=== PATIENT | male | born 1965 | race Caucasian/White ===

== ENCOUNTER 2023-07-02 09:22 | Emergency (ER) | payer OTHER ==
[~2023-07-02] VITALS: Ht 177.8 cm; Wt 118.8 kg
[2023-07-02] MEDS ORDERED: TOPROL XL100 M1 PO (09:46)
[2023-07-02] MEDS ORDERED: CRESTOR10 MG PO (09:46)
[2023-07-02] MEDS ORDERED: FARXIGA10 MG PO (09:47)
[2023-07-02] MEDS ORDERED: FENOFIBRIC ACI105 MG (09:47)
[2023-07-02] MEDS ORDERED: ALTACE10 MG PO (09:47)
[2023-07-02] MEDS ORDERED: METFORMIN HCL500 M2 PO (09:47)
== END 2023-07-02 12:48 | disposition home or self-care (01) ==
LOC: ER 09:22
DX: R42 Dizziness and giddiness (principal)

== ENCOUNTER → 2024-05-04 08:06 | Outpatient (CLI) | payer OTHER ==
[~2024-05-04 08:06] MED LIST: ALTACE10 MG PO; CRESTOR10 MG PO; FARXIGA10 MG PO; FENOFIBRIC ACI105 MG; METFORMIN HCL500 M2 PO; TOPROL XL100 M1 PO
== END | disposition home or self-care (01) ==
LOC: LAB 08:06
DX: E11.65 Type 2 diabetes mellitus with hyperglycemia (principal); E11.8 Type 2 diabetes mellitus with unspecified complications

== ENCOUNTER → 2024-08-26 07:29 | Outpatient (CLI) | payer OTHER ==
[2024-08-26 08:54] LABS: ALBUMIN 4.1 gm/dL (3.4-5.0); BILIRUBIN TOTAL 0.7 mg/dL (0.3-1.2); CALCIUM 8.8 mg/dL (8.5-10.1); CREATININE SERUM 0.81 mg/dL (0.70-1.30); GFR 96.88; GLOBULINA 3.2 G/DL (2.4-3.5); POTASSIUM 4.08 mEq/L (3.5-5.1); TOTAL PROTEIN 7.3 gm/dL (6.4-8.2)
== END | disposition home or self-care (01) ==
LOC: LAB 07:29
PROVIDERS: ATTEND Internal Medicine
DX: E11.9 Type 2 diabetes mellitus without complications (principal)

== ENCOUNTER → 2024-12-06 09:07 | Outpatient (CLI) | payer OTHER ==
[2024-12-06 11:41] LABS: HEMATOCRIT 42.9 % (39.0-48.0); HEMOGLOBIN 14.6 g/dL (13-16.00); MEAN CELL VOLUME 87.8 fL (80.0-100.00); MEAN CORPUSCULAR HEMOGLOBIN 29.8 pg (27.00-32.0); PLATELET COUNT 206 K/uL (150-450); RED BLOOD COUNT 4.89 M/uL (4.00-6.00)
[2024-12-06 11:55] LABS: ALBUMIN 4.3 gm/dL (3.4-5.0); BILIRUBIN TOTAL 0.7 mg/dL (0.3-1.2); CREATININE SERUM 0.76 mg/dL (0.70-1.30); GFR 104.27; POTASSIUM 4.27 mEq/L (3.5-5.1); TOTAL PROTEIN 7.3 gm/dL (6.4-8.2)
== END | disposition home or self-care (01) ==
LOC: LAB 09:07
PROVIDERS: ATTEND Internal Medicine
DX: I11.9 Hypertensive heart disease without heart failure (principal)

== ENCOUNTER 2025-03-12 07:14 | Outpatient (CLI) | payer OTHER ==
[2025-03-12 08:21] LABS: BASO % 0.6 % (0.1-1.2); EOS # 0.21 (0.04-0.54); EOS % 3.3 % (0.7-7.0); LYMPH # 2.37 (1.18-3.74); LYMPH % 36.9 % (19.3-53.1); MEAN PLATELET VOLUME 9.90 fl (9.4-12.4); MONO # 0.59 (0.24-0.82); MONO % 9.2 % (4.7-12.5); NEUT # 3.19 (1.56-6.13); NEUT % 49.7 % (34.0-71.1); RED CELL DISTRIBUTION WIDTH 12.4 % (11.6-14.4)
[2025-03-12 09:17] LABS: ALT/SGPT 32.0 U/L (12-78); AST/SGOT 23.0 U/L (15-37); BILIRUBIN TOTAL 0.61 mg/dL (0.3-1.2); BUN CREA RATIO 27.0 (7.0-25.0); CREATININE SERUM 0.83 mg/dL (0.70-1.30); GFR 93.88; GLOBULINA 2.9 G/DL (2.4-3.5); GLUCOSE FASTING 115.0 mg/dL (65-100); OSMOLALITY SERUM 282.0 MOSM/KG (275-295)
[2025-03-12 10:28] LABS: PROSTATIC SPECIFIC ANTIGEN 0.552 NG/ML (0.010-4.00)
== END 2025-03-12 07:20 | disposition home or self-care (01) ==
LOC: LAB 07:14
PROVIDERS: ATTEND Internal Medicine
DX: E11.22 Type 2 diabetes mellitus with diabetic chronic kidney disease (principal)

== ENCOUNTER 2025-03-26 08:36 | Outpatient (CLI) | payer OTHER | END 2025-03-26 08:39 | disposition home or self-care (01) | LOC: RAD 08:36 | DX: M25.551 Pain in right hip (principal); M25.552 Pain in left hip ==

== ENCOUNTER 2025-06-07 08:11 | Outpatient (CLI) | payer OTHER ==
[2025-06-07 08:37] LABS: BASO % 0.5 % (0.1-1.2); EOS # 0.24 (0.04-0.54); EOS % 3.7 % (0.7-7.0); LYMPH # 2.33 (1.18-3.74); LYMPH % 35.8 % (19.3-53.1); MEAN PLATELET VOLUME 9.40 fl (9.4-12.4); MONO # 0.59 (0.24-0.82); MONO % 9.1 % (4.7-12.5); NEUT # 3.29 (1.56-6.13); NEUT % 50.6 % (34.0-71.1); RED CELL DISTRIBUTION WIDTH 12.5 % (11.6-14.4)
[2025-06-07 09:15] LABS: ALT/SGPT 36.0 U/L (12-78); AST/SGOT 29.0 U/L (15-37); BILIRUBIN TOTAL 0.56 mg/dL (0.3-1.2); BUN CREA RATIO 26.0 (7.0-25.0); CREATININE SERUM 0.86 mg/dL (0.70-1.30); GFR 90.11; GLOBULINA 2.8 G/DL (2.4-3.5); GLUCOSE FASTING 123.0 mg/dL (65-100); OSMOLALITY SERUM 282.0 MOSM/KG (275-295)
== END 2025-06-07 08:17 | disposition home or self-care (01) ==
LOC: LAB 08:11
PROVIDERS: ATTEND Internal Medicine
DX: E11.9 Type 2 diabetes mellitus without complications (principal); I12.9 Hypertensive chronic kidney disease with stage 1 through stage 4 chronic kidney disease, or unspecified chronic kidney disease

== ENCOUNTER → 2025-07-09 | Emergency (ER) | payer OTHER ==
[~2025-07-09] VITALS: Ht 177.8 cm; Wt 113.4 kg
[~2025-07-09] MED LIST changes: +BENZONATATE 200 MG CAPSULE PO ONE; +OSEL75CA PO; +OZEMPIC1 MG/0.71 SQ
[2025-07-09 11:48] VITALS: BP 126/66; O2SAT 99
[2025-07-09 13:17] LABS: BASO % 0.5 % (0.1-1.2); EOS # 0.15 (0.04-0.54); EOS % 2.6 % (0.7-7.0); LYMPH # 1.33 (1.18-3.74); LYMPH % 23.1 % (19.3-53.1); MEAN PLATELET VOLUME 9.50 fl (9.4-12.4); MONO # 0.83 (0.24-0.82); NEUT # 3.39 (1.56-6.13); NEUT % 58.9 % (34.0-71.1); RED CELL DISTRIBUTION WIDTH 12.8 % (11.6-14.4)
[2025-07-09 13:21] LABS: MONO % 14.4 % (4.7-12.5)
[2025-07-09 13:30] LABS: COVID-19 AG NEGATIVE (NEGATIVE)
== END | disposition home or self-care (01) ==
LOC: ER 10:25
PROVIDERS: General Practice
DX: J10.1 Influenza due to other identified influenza virus with other respiratory manifestations (principal); R05.8 Other specified cough; Z20.822 Contact with and (suspected) exposure to COVID-19; E11.9 Type 2 diabetes mellitus without complications; Z79.84 Long term (current) use of oral hypoglycemic drugs; I10 Essential (primary) hypertension